=== PATIENT | male | born 1965 | race African-American/Black ===

== ENCOUNTER → 2022-10-01 | Outpatient (CLI) | payer MEDICARE, MEDICAID ==
[~2022-10-01] MED LIST: IOHEXOL-350 100 ML BOTTLE ONE
== END | disposition home or self-care (01) ==
LOC: CT 08:44
PROVIDERS: ATTEND Internal Medicine Cardiovascular Disease
DX: K76.0 Fatty (change of) liver, not elsewhere classified (principal); I89.8 Other specified noninfective disorders of lymphatic vessels and lymph nodes; I71.21 Aneurysm of the ascending aorta, without rupture
CPT/HCPCS: 71275; Q9967